=== PATIENT | male | born 1985 | race Caucasian/White ===

== ENCOUNTER 2022-09-01 07:59 | Emergency (ER) | payer OTHER ==
--- NOTE | 2022-09-01 08:43 | RAD REPORT ---
EXAM DESCRIPTION: RAD - Ankle Right 3 View - 09/01/2022 8:29 am CLINICAL HISTORY: Right ankle pain FINDINGS: No fracture or dislocation is seen. No bone or joint abnormality noted
--- NOTE | 2022-09-01 08:45 | RAD REPORT ---
EXAM DESCRIPTION: RAD - Foot Right 3 View - 09/01/2022 8:29 am CLINICAL HISTORY: Right foot pain FINDINGS: No fracture or dislocation is seen No bone or joint abnormality noted
--- NOTE | 2022-09-01 08:50 | EDPHYS ---
Physician Documentation [facility] Name: Jose Pruitt Age: 37 yrs Sex: Male : 1985 Arrival Date: 09/01/2022 Time: 08:03 Bed 20 Private MD: ED Physician Arjun Cancino HPI: 09/01 08:27 This 37 yrs old Male presents to ER via Wheelchair with complaints of Foot Injury. rn 08:27 The patient presents with an injury, pain. The complaints affect the right foot. Onset: rn The symptoms/episode began/occurred last night. Modifying factors: The symptoms are alleviated by nothing, the symptoms are aggravated by weight bearing. Associated signs and symptoms: Pertinent positives: swelling, Pertinent negatives: fever, weakness. Severity of symptoms: At their worst the symptoms were moderate, in the emergency department the symptoms are unchanged. The patient has not experienced similar symptoms in the past. The patient has not recently seen a physician. Pt reports thinks "rolled ankle and foot" last night while stepped off walkway. Reports pain right lateral ankle and top of midfoot. NO other injury. Ambulatory. Reports wants a boot so he can go workout.. Historical: - Allergies: 08:13 No Known Allergies; mb8 - PMHx: 08:13 Bronchitis; Anxiety; mb8 - Social history:: Smoking status: Patient denies any tobacco usage or history of. - Family history:: not pertinent. - Hospitalizations: : No recent hospitalization is reported. ROS: 08:27 Constitutional: Negative for fever, chills, and weight loss, MS/Extremity: + right foot rn and ankle injury/swelling Skin: Negative for injury, rash, and discoloration, Neuro: Negative for weakness, numbness, tingling Exam: 08:27 Constitutional: This is a well developed, well nourished patient who is awake, alert, rn and in no acute distress. MS/ Extremity: Pulses equal, no cyanosis. Neurovascular intact. + mild tenderness under right lateral malleolus and dorsal midfoot. No open wounds. No ecchymosis but tattoo in area on injury. + mild swelling on dorsal midfoot Vital Signs: 08:14 BP 134 / 93; Pulse 85; Resp 16; Temp 98; Pulse Ox 95% ; Weight 97.52 kg; Height 5 ft. mb8 10 in. (177.80 cm); Pain 8/10; 09:00 BP 133 / 80; Pulse 80; Resp 14; Pulse Ox 100% ; Pain 8/10; mb8 08:14 Body Mass Index 30.85 (97.52 kg, 177.80 cm) 8 MDM: 08:06 Patient medically screened. rn 08:47 Differential diagnosis: fracture, sprain. Data reviewed: vital signs, nurses notes, rn radiologic studies, plain films, and as a result, I will discharge patient. Counseling: I had a detailed discussion with the patient and/or guardian regarding: the historical points, exam findings, and any diagnostic results supporting the discharge/admit diagnosis, radiology results, the need for outpatient follow up, to return to the emergency department if symptoms worsen or persist or if there are any questions or concerns that arise at home. Response to treatment: the patient's symptoms have mildly improved after treatment, and as a result, I will discharge patient. Special discussion: I discussed with the patient/guardian in detail that at this point there is no indication for admission to the hospital. It is understood, however, that if the symptoms persist or worsen the patient needs to return immediately for re-evaluation. Based on the history and exam findings, there is no indication for further emergent testing or inpatient evaluation. I discussed with the patient/guardian the need to see the orthopedic surgeon for further evaluation of the symptoms. I discussed with the patient/guardian the need to see the primary care provider for further evaluation of the symptoms. 09/01 08:10 Order name: XRAY Foot RIGHT 3 View rn 09/01 08:10 Order name: XRAY Ankle RIGHT 3 view rn 09/01 08:10 Order name: Splint: walking boot; Complete Time: 09:06 rn 09/01 08:43 Order name: RAD; Complete Time: 08:47 EDMS 09/01 08:46 Order name: RAD; Complete Time: 08:47 EDMS Administered Medications: No medications were administered Disposition Summary: 09/01/22 08:49 Discharge Ordered Location: Home rn Problem: new rn Symptoms: have improved rn Condition: Stable rn Diagnosis - Other sprain of right foot, initial encounter rn Followup: rn - With: Private Physician - When: As needed - Reason: Recheck today's complaints, Re-evaluation by your physician Discharge Instructions: - Discharge Summary Sheet rn - Foot Sprain rn Forms: - Medication Reconciliation Form rn - Thank You Letter rn - Antibiotic controlled atmospheric furnace brazer - Prescription Opioid Use rn Signatures: Dispatcher [employer] Arjun Howard MD MD rn Bates, Michael, RN RN mb8
--- NOTE | 2022-09-01 08:50 | ER ---
Nurse's Notes [facility] Name: Jose Pruitt Age: 37 yrs Sex: Male : 1985 Arrival Date: 09/01/2022 Time: 08:03 Bed 20 Private MD: Diagnosis: Other sprain of right foot, initial encounter Presentation: 09/01 08:11 Chief complaint: Patient states: he stepped off the sidewalk and 'rolled' his ankle mb8 last night, pain got worse. Coronavirus screen: Vaccine status: Patient reports being unvaccinated. Ebola Screen: Patient negative for fever greater than or equal to 101.5 degrees Fahrenheit, and additional compatible Ebola Virus Disease symptoms Patient denies exposure to infectious person. Patient denies travel to an Ebola-affected area in the 21 days before illness onset. Initial Sepsis Screen: Does the patient meet any 2 criteria? No. Patient's initial sepsis screen is negative. Does the patient have a suspected source of infection? No. Patient's initial sepsis screen is negative. Risk Assessment: Do you want to hurt yourself or someone else? Patient reports no desire to harm self or others. Onset of symptoms was August 31, 2022. 08:11 Method Of Arrival: Wheelchair mb8 08:11 Acuity: ABHISHEK 4 mb8 Triage Assessment: 08:13 General: Appears in no apparent distress. Behavior is calm, cooperative, appropriate mb8 for age. Pain: Complains of pain in lateral aspect of right foot and left leg Pain does not radiate. Pain currently is 8 out of 10 on a pain scale. Quality of pain is described as aching. Musculoskeletal: Reports pain in lateral aspect of right foot Pain is 8 out of 10 on a pain scale. Injury Description: Historical: - Allergies: 08:13 No Known Allergies; mb8 - PMHx: 08:13 Bronchitis; Anxiety; mb8 - Social history:: Smoking status: Patient denies any tobacco usage or history of. - Family history:: not pertinent. - Hospitalizations: : No recent hospitalization is reported. Screenin:15 Abuse screen: Denies threats or abuse. Denies injuries from another. Nutritional mb8 screening: No deficits noted. Tuberculosis screening: No symptoms or risk factors identified. Fall Risk None identified. Assessment: 08:15 Musculoskeletal: Reports pain in lateral aspect of right foot Pain is 8 out of 10 on a mb8 pain scale. Vital Signs: 08:14 BP 134 / 93; Pulse 85; Resp 16; Temp 98; Pulse Ox 95% ; Weight 97.52 kg; Height 5 ft. mb8 10 in. (177.80 cm); Pain 8/10; 09:00 BP 133 / 80; Pulse 80; Resp 14; Pulse Ox 100% ; Pain 8/10; mb8 08:14 Body Mass Index 30.85 (97.52 kg, 177.80 cm) mb8 ED Course: 08:03 Patient arrived in ED. rg4 08:06 Arjun Cancino MD is Attending Physician. rn 08:11 Solomon Pastor, RN is Primary Nurse. mb8 08:13 Triage completed. mb8 08:15 Arm band placed on. mb8 08:15 Patient has correct armband on for positive identification. Bed in low position. Call mb8 light in reach. Side rails up X2. Client placed on continuous cardiac and pulse oximetry monitoring. NIBP monitoring applied. 08:16 No provider procedures requiring assistance completed. Patient did not have IV access mb8 during this emergency room visit. 08:24 XRAY Ankle RIGHT 3 view Sent. mb8 08:24 XRAY Foot RIGHT 3 View Sent. mb8 08:55 Walking boot applied to right foot. mb8 Administered Medications: No medications were administered Medication: 08:15 VIS not applicable for this client. mb8 Outcome: 08:49 Discharge ordered by . rn 09:06 Discharged to home mb8 09:06 Condition: stable 09:06 Discharge instructions given to patient, Instructed on discharge instructions, follow up and referral plans. medication usage, Demonstrated understanding of instructions, follow-up care, medications. 09:07 Patient left the ED. mb8 Signatures: Arjun Cancino MD MD rn Garcia, Rubi rg4 Solomon Pastor, RN RN mbNeelima
[2022-09-01 09:12] VITALS: TEMP 98
[2022-09-01 09:13] VITALS: BP 133/80; O2SAT 100
== END 2022-09-01 09:07 | disposition home or self-care (01) ==
LOC: ER 07:59
DX: S93.601A Unspecified sprain of right foot, initial encounter (principal)
CPT/HCPCS: 99283